=== PATIENT | female | born 1985 | race Hispanic/Latino ===

== ENCOUNTER 2023-02-14 23:20 | Inpatient (IN) | payer OTHER, SELFPAY ==
[2023-02-14 23:48] VITALS: BP 117/83; PULSE 77
[2023-02-15] VITALS (41 sets, daily range): BP systolic 95–131; BP diastolic 60–81; PULSE 59–89; RESP 14–19; TEMP 35.7–36.9; O2SAT 96–100; BMI 32.7
--- NOTE | 2023-02-15 00:20 | WPDANESEPP ---
Anes - Eval Pre Procedure Procedure: Operation Date: 02/15/23 00:10 Proposed Procedures p Section - Jesus Thompson MD Date/Time: 02/15/23 00:20 Pre Op Diagnosis: kaylynn acevedo Patient Data Age: 37 Gender: F Height: Weight: Last Vital Signs Pulse 73 02/15/23 00:01 BP 126/81 02/15/23 00:01 Patient hx anesthesia problems: none Family hx anesthesia problems: none Results Review: All pre-operative results and documents have been reviewed as part of the pre-operative evaluation. [facility] Past Medical History Medical History (Updated 02/15/23 @ 00:20 by Rafaela Garcia CRNA) IUP (intrauterine ), incidental Exam Day of Procedure 02/15/23 00:20
[2023-02-15 00:26] LABS: Basophils Percent Auto 0.3 % (0.2-1.2); Eosinophils Absolute Auto 0.1 K/mm3 (0-0.3); Eosinophils Percent Auto 1.1 % (0-4.4); Hematocrit 32.8 % (37.0-47.0); Hemoglobin 11.4 g/dL (12.0-15.0); Immature Granulocyte Absolute 0.04 K/mm3 (0.00-0.031); Immature Granulocyte Percent A 0.4 % (0-0.5); Lymphocytes Percent Auto 23.1 % (18.3-44.2); Mean Corpuscular HGB Conc 34.8 g/dl (32-36); Mean Corpuscular Hemoglobin 32.5 pg (26-34); Mean Corpuscular Volume 93.4 fl (80-100); Mean Platelet Volume 9.4 fl (7.4-10.4); Monocytes Absolute Auto 0.7 K/mm3 (0.1-0.6); Monocytes Percent Auto 8.1 % (2.6-8.5); Neutrophils Absolute Auto 6.1 K/mm3 (1.3-6.7); Platelet Count Result 192 k/mm3 (150-375); Red Blood Count 3.51 M/mm3 (4.2-5.4); Red Cell Distribution Width 13.9 % (11.5-14.5); White Blood Count 9.1 K/mm3 (4.5-10.0)
--- NOTE | 2023-02-15 00:34 | LDADM ---
This patient, Alysia Stovall, was admitted to Labor/Delivery/Recovery 107 on 02/14/23 at 23:20. Plans for labor, pain management and were discussed with patient. Patient/family oriented to hospital policies and general routines including ID bracelet, bed and alarms, visiting hours, pain management, procedures, bathroom and other care routines, personal items, smoking policy, room service/diet and guest tray routines, security routines, and visiting hours. Patient/Family are encouraged to report perceived risks to care and to ask questions if they do not understand what they are told or what they should do. See OBIX for further documentation.
[2023-02-15 00:54] LABS: Glucose Point of Care 123 mg/dl (65-105)
--- NOTE | 2023-02-15 01:06 | PM.IMHP ---
H&P: HPI History of Present Illness Date/Time: 02/15/23 01:06 Chief Complaint: Douglas acevedo Narrative: 37 y/o at 36 4/7 weeks gestation. She had a gush of fluid about 2100. SROM confirmed here on L&D. Feeling some contractions. Has gestational diabetes. She was taking glyburide, but says her glucose values have been ok recently without medication. GBS unknown. Review of Systems Review of Systems: All systems reviewed & are unremarkable except as noted in HPI and below PMFSH Past Medical History Medical History (Updated 02/15/23 @ 01:12 by Jesus Thompson MD) IUP (intrauterine ), incidental Surgical History Surgical History (Updated 02/15/23 @ 01:11 by Jesus Thompson MD) History of delivery Social History Social History Smoking status: Former smoker Tobacco type: cigarettes Smoking end date: 06/20/22 Substance use: never Lack of Transportation: No Lack of Food: Never True Current Housing: I Have Housing Concerned About Future Housing: No Difficulty Paying Gas/Electric Bills: No Difficulty Paying for Meds: No Currently Unemployed: No Education: Grade School Difficulty w/ Childcare or Family Care: No Spiritual care concerns: No Meds Home Medications and Allergies Home Medications Medication Instructions Recorded Confirmed Type No Home Medications 02/15/23 02/15/23 History Allergies Allergy/AdvReac Type Severity Reaction Status Date / Time No Known Allergies Allergy Verified 02/15/23 00:26 Vital Signs Vital Signs - 24 hr 02/14/23 23:48 02/15/23 00:01 02/15/23 00:43 Pulse Rate 77 73 78 Blood Pressure 117/83 126/81 119/80 Oxygen Delivery 02/15/23 01:01 02/15/23 00:32 Pulse Rate 72 Blood Pressure 111/69 Oxygen Delivery Room Air Exam Const: Orientation/consciousness: patient oriented x3 Other: Well-developed, well-nourished female in no acute distress. Neck: Thyroid: thyroid normal Lymphatic: no lymphadenopathy noted (in neck, axilla or inguinal nodes) Resp: Effort & Inspection: normal respiratory effort Auscultation: clear to auscultation bilaterally Cardio: Rate: regular rate Rhythm: regular rhythm Heart sounds: S1 normal heart sound present and S2 normal heart sound present GI: Other: ABD: Soft, nontender, nondistended, gravid. NST reactive. TOCO: occasional contractions. No guarding or rebound tenderness. No hepatosplenomegaly. : General: Yes no CVA tenderness Other: RomPlus positive Back/Spine/Pelvis: Back: no CVA tenderness Skin: General skin exam: normal color and no rashes or lesions noted Neuro: General: patient oriented x3 Extrem: Other: Extremities: nontender with no edema Psych: Mental Status: mental status grossly normal Affect: normal affect H&P: Results Labs Labs: Short CBC 02/15/23 Range/Units 00:19 WBC 9.1 (4.5-10.0) K/mm3 Hgb 11.4 L (12.0-15.0) g/dL Hct 32.8 L (37.0-47.0) % Plt Count 192 (150-375) k/mm3 Assessment and Plan Assessment and plan (1) SROM (spontaneous rupture of membranes): Status: Acute Assessment and Plan: A: IUP at 36 4/7 weeks with SROM, prior x 2, desiring repeat . Gestational diabetes. P: Offered repeat . She understands risks of surgery to include risks of anesthesia, risks of pain, infection, bleeding, blood products, thromboembolic phenomena and damage to adjacent structures such as bowel, bladder, ureters, blood vessels and nerves. She understands all these risks and elects to proceed with surgery. (2) labor: Code(s): O60.00 - labor without delivery, unspecified trimester Status: Acute (3) History of delivery: Code(s): Z98.891 - History of uterine scar from previous surgery Status: Acute (4) Gestational diabetes mellitus: Co
[2023-02-15] MEDS: ceFAZolin 2 GM/D5W 50 ML 2 GM/50 ML BAG IVPB (01:10)
--- NOTE | 2023-02-15 01:12 | WPDHPUPDATE1 ---
History and Physical Update Update Date/Time: 02/15/23 01:12 History and Physical has been reviewed, including an updated exam of the patient. There are NO changes in the patient's condition. Risks, benefits, and alternatives have been discussed and questions answered. Patient agrees to proceed with procedure.
[2023-02-15] MEDS: AZITHROMYCIN 500 MG/NS 250 ML 500 MG/250 ML BAG 250 MG IVPB (01:20)
[2023-02-15] MEDS: KETOROLAC 30 MG/ML VIAL (*BKC) IV PUSH (01:50)
--- NOTE | 2023-02-15 02:04 | PM.OBPRVD ---
OB - Delivery Note Procedure Delivery date: 02/15/23 Procedure: Procedures Operation Date: 02/15/23 00:10 Actual Procedure Side Surgeon p Section Jesus Thompson MD Events: Gestational Diabetes Delivery monitor: External FHT and External Uterine Route of delivery: Specimen: Yes (cord blood, placenta) Quantitative Blood Loss (ml): 280 Anesthesia type: Spinal Disposition: PACU Complications: None Narrative: The patient was taken to the operating room where she was prepared and draped in the usual sterile fashion in dorsal supine position with a leftward tilt. She received cefazolin and azithromycin preoperatively. Accucheck was 123. Spinal anesthesia was found to be adequate. A Pfannenstiel skin incision was made along the previous scar line and was carried through to the underlying layer of the fascia. The fascia was incised in the midline and the incision was extended laterally. The fascia was dissected free of the underlying rectus muscles. The rectus muscles were in the midline. The peritoneum was identified, tented up and entered sharply. The peritoneal incision was extended superiorly and inferiorly with good visualization of the bladder. The bladder blade was placed. The vesicouterine peritoneum was identified, tented up and entered sharply. The incision was extended laterally and the bladder flap was developed. The bladder blade was replaced. The uterus was then incised sharply in a transverse fashion along the lower uterine segment. The incision was extended laterally. The infant's head was delivered atraumatically to the sterile field, followed by the body. The nose and mouth were bulb suctioned. After a delay, the cord was clamped and cut. The was handed off the field. Cord blood was collected. The placenta was removed manually and was passed off the field. The uterus was exteriorized and cleared of all clots and debris. The uterine incision was reapproximated using 0 Monocryl in a running, locked fashion. A second, imbricating layer of the same suture was run. Excellent hemostasis resulted as did excellent reapproximation of the normal anatomy. The uterus was returned the abdomen. The pelvis was irrigated copiously with warmed normal saline. Rigorous hemostasis was assured. The fascial layer was reapproximated using 0 Vicryl in a running fashion. The skin was closed with a running, subcuticular stitch of 4 0 Vicryl. Dermaflex was applied externally. Sponge, lap, needle and instrument counts were correct. The patient was taken to the recovery room in stable condition. The infant went to the nursery in stable condition. I was present and scrubbed the entire procedure. [place] Baby Date of : 02/15/23 Time of : 01:36 Weeks of gestation at delivery: 36 Infant gender: Male Weight (pounds): 9 Weight (ounces): 8 presentation: vertex Placenta delivery description: Manual Removal and Normal Configuration Cord Vessel Description: 3 Vessels and Delayed Cord Clamping score one minute: 8 score five minutes: 9
--- NOTE | 2023-02-15 02:07 | PM.OBDSVD ---
DS: Admitting Diagnosis Discharge Date 02/19/23 Admitting Diagnosis IUP at 36 4/7 weeks SROM Gestational diabetes, noncompliant with treatment Prior , desires repeat Unknown GBS status DS: Discharge Diagnosis Discharge Diagnosis (1) Gestational diabetes mellitus: Code(s): O24.419 - Gestational diabetes mellitus in , unspecified control Status: Acute (2) History of delivery: Code(s): Z98.891 - History of uterine scar from previous surgery Status: Acute (3) labor: Code(s): O60.00 - labor without delivery, unspecified trimester Status: Acute (4) SROM (spontaneous rupture of membranes): Status: Acute (5) delivery delivered: Code(s): O82 - Encounter for delivery without indication Status: Acute OB - DS: Summary OB Procedures : None OB Procedures Intrapartum: OB Procedures: : None Peripartum Data Procedures: Procedures Operation Date: 02/15/23 00:10 Actual Procedure Side Surgeon p Section Jesus Thompson MD Time Spent with Patient Time attestation: Total time spent providing and/or coordinating discharge services: DS: Data Data Completed and Pending Labs on day of discharge: Labs from last 24 hours 02/15/23 02/15/23 00:39 00:19 WBC 9.1 RBC 3.51 L Hgb 11.4 L Hct 32.8 L MCV 93.4 MCH 32.5 MCHC 34.8 RDW 13.9 Plt Count 192 MPV 9.4 Immature Gran % (Auto) 0.4 Neut % (Auto) 67.0 Lymph % (Auto) 23.1 [place] % (Auto) 8.1 Eos % (Auto) 1.1 Baso % (Auto) 0.3 Lymph # (Auto) 2.10 [place] # (Auto) 0.7 H Eos # (Auto) 0.1 Baso # (Auto) 0.0 Abs Immat Gran (auto) 0.04 H Absolute Neuts (auto) 6.1 Absolute Nucleated RBC 0.0 Nucleated RBC % 0.0 POC Capillary Glucose 123 H RPR Pending Blood Type O Positive Antibody Screen Pending Discharge Plan Discharge Attending physician on discharge: Yfn Elaine Discharging Clinician: Yfn Elaine Patient Disposition: Home, Self-Care Activity: may shower, may drive after 2 weeks and pelvic rest Diet: regular Discharge Instructions: Call or return if temperature above 100.4? F, increased abdominal pain, increased vaginal bleeding or any new problems. Patient Instructions: How to Stop Smoking (DC), How to Stop Smoking (GEN), Cigarette Smoking and Your Health (GEN), Secondhand Smoke Exposure in Children (GEN) Patient Language: Greek Stand Alone Forms: General Discharge Information Follow-up/Referrals: Yfn Elaine MD [Physician] - 4 Weeks Discharge Medications: New ibuprofen 600 mg tablet 600 mg PO Q6H PRN (Reason: cramps) Qty: 30 0RF hydrocodone-acetaminophen 5-325 mg tablet 1 - 2 tablet PO Q6H PRN (Reason: pain) Qty: 30 0RF ferrous sulfate 325 mg (65 mg iron) tablet 325 mg PO DAILY Qty: 30 0RF Date of admission: 02/14/23 23:20 Primary Care Provider: PHYSICIAN[employer] Admitting Provider: Yfn Elaine Attending physician on admission: Yfn Elaine Condition: Stable
[2023-02-15] MEDS: OXYTOCIN 30 UNITS/NS 500 ML 30 UNITS/500 ML BAG 125 UNITS IV CONT (03:37)
--- NOTE | 2023-02-15 04:36 | PC.NURSE ---
Patient transferred to post room #279 per stretcher from labor and delivery. Support person present. Oriented to unit, room, information board, rooming in, admission packet and security measures. Patient verbalizes understanding.
[2023-02-15] MEDS: DEXTROSE 5%/0.45% SOD CHL 1,000 ML 125 ML IV CONT (07:00)
[2023-02-15] MEDS: MULTIVIT/MIN/PREN/FOL AC/IRON TABLET 1 TAB PO (08:37)
[2023-02-15] MEDS: DOCUSATE SODIUM 100 MG CAPSULE PO ×2 (08:37→16:30)
[2023-02-15] MEDS: IBUPROFEN 600 MG TABLET PO ×3 (08:37→23:57)
--- NOTE | 2023-02-15 10:35 | PC.NURSE ---
Addendum entered by Holly Botello RN 02/15/23 10:44: There was education regarding late behaviors along with other education listed below on how to encourage wakefulness and eating. Original Note: [id number] Introductions were made, then consulted with patient to assess needs related to . Resources provided for inpatient and outpatient services with the [place] guide and name written on the white board. Mother works well with her with encouragement, education, and has breastfed other children. Encouraged understanding of the benefits of skin to skin (demonstrating unwrapping infant and placing upright on her chest), stimulating with massage touch, changing positions to encourage wakefulness, how to watch for early feeding cues, responsive feeding, feeding on demand (aiming for 8-12 times in 24 hours, about every 2-3 hours), milk production, building/maintaining a milk supply, duration of feeding, signs of adequate intake/output and how to record on the feeding sheet. Infant is quiet alert and awake stooling in the diaper for the second time and burping after [id number], changing positioning, and stimulating massage touch. is not demonstrating feedin cues at this time. Nipple care reviewed with optimal latch and good positioning. Mother states when infant has latched there was no pain. Reminding mother of comfort measures of healing with a warm and wet washcloth to rinse breast, then leave open to air-dry as needed. Mother voiced understanding of skin to skin, stimulating with massage touch, responsive feedings, hand expressed colostrum, talking to to encourage if it has been 2 -2.5 hours since the start of the last , to call if does not latch, or if there is discomfort with . Parents voiced understanding of information, demonstrated learning and will call if there is a request for assistance. Primary RN is present for the entire consult as she interpreted.
[2023-02-15] MEDS: HYDROcodone/acetaminophen (*CRX) 5-325 MG TABLET 1 TAB PO (13:06)
[2023-02-15 15:14] LABS: Rapid Plasma Reagin Non-Reactive (NonReactive)
[2023-02-16 05:22] LABS: Basophils Percent Auto 0.3 % (0.2-1.2); Eosinophils Absolute Auto 0.2 K/mm3 (0-0.3); Eosinophils Percent Auto 1.9 % (0-4.4); Hematocrit 29.5 % (37.0-47.0); Hemoglobin 9.8 g/dL (12.0-15.0); Immature Granulocyte Absolute 0.04 K/mm3 (0.00-0.031); Immature Granulocyte Percent A 0.4 % (0-0.5); Lymphocytes Absolute Auto 1.63 K/mm3 (0.9-3.2); Lymphocytes Percent Auto 17.3 % (18.3-44.2); Mean Corpuscular HGB Conc 33.2 g/dl (32-36); Mean Corpuscular Hemoglobin 32.1 pg (26-34); Mean Corpuscular Volume 96.7 fl (80-100); Mean Platelet Volume 9.6 fl (7.4-10.4); Monocytes Absolute Auto 0.8 K/mm3 (0.1-0.6); Monocytes Percent Auto 8.1 % (2.6-8.5); Neutrophils Absolute Auto 6.8 K/mm3 (1.3-6.7); Platelet Count Result 146 k/mm3 (150-375); Red Blood Count 3.05 M/mm3 (4.2-5.4); Red Cell Distribution Width 14.5 % (11.5-14.5); White Blood Count 9.4 K/mm3 (4.5-10.0)
[2023-02-16 07:25] VITALS: BP 99/67; PULSE 73; RESP 16; TEMP 36.4; O2SAT 98
--- NOTE | 2023-02-16 07:52 | WPDANLDPN2 ---
Anes-Prog Note L&D Date/Time: 02/16/23 07:52 Neuro status: Neuro function grossly intact. Vital Signs: Last Vital Signs Temp 36.5 C 02/15/23 23:50 Pulse 89 02/15/23 23:50 Resp 18 02/15/23 23:50 BP 96/61 L 02/15/23 23:50 Pulse Ox 99 02/15/23 15:40 O2 Del Method Room Air 02/15/23 15:40 Pain score (VAS): 0 I/O: Intake & Output 02/15/23 02/15/23 02/16/23 15:59 23:59 07:59 Intake Total 4500 2240 Output Total 4900 3950 Balance -400 -1710 Patient feedback: Patient satisfied with anesthetic care.
--- NOTE | 2023-02-16 07:52 | WPDANLDNPN2 ---
Anes-Prog Note L&D-Neuraxial Date/Time: 02/16/23 07:52 Patient feedback: Patient satisfied with post-operative pain management.
--- NOTE | 2023-02-16 10:27 | PM.OBPNVD ---
OB - PN: Subj Subjective Date/time seen: 02/16/23 10:27 Patient comments: no complaints and pain well controlled baby status: doing well and nursing well OB - PN: Obj Data Labs 02/16/23 04:48 Labs: Laboratory Results - last 24 hr 02/15/23 02/16/23 00:19 04:48 WBC 9.4 RBC 3.05 L Hgb 9.8 L Hct 29.5 L MCV 96.7 MCH 32.1 MCHC 33.2 RDW 14.5 Plt Count 146 L MPV 9.6 Immature Gran % (Auto) 0.4 Neut % (Auto) 72.0 Lymph % (Auto) 17.3 L [place] % (Auto) 8.1 Eos % (Auto) 1.9 Baso % (Auto) 0.3 Lymph # (Auto) 1.63 [place] # (Auto) 0.8 H Eos # (Auto) 0.2 Baso # (Auto) 0.0 Abs Immat Gran (auto) 0.04 H Absolute Neuts (auto) 6.8 H Absolute Nucleated RBC 0.0 Nucleated RBC % 0.0 RPR Non-reactive OB - PN A/P Plan day: 1 Plan: routine care Time Spent With Patient Time: Total time spent is greater than 50% in coordination of care (as documented) at patient's floor/unit and/or counseling patient: Time with patient: less than 15 minutes Exam Const: General: cooperative, healthy appearing and comfortable Nutritional Appearance: average body habitus Orientation/consciousness: oriented to person, oriented to place and oriented to time HENMT: Head: normal to inspection Resp: Effort & Inspection: normal respiratory effort Cardio: Rate: regular rate Rhythm: regular rhythm Heart sounds: S1 normal heart sound present and S2 normal heart sound present GI: Inspection: normal to inspection and incision (Wound clean dry and intact)
[2023-02-16] MEDS: IBUPROFEN 600 MG TABLET PO (12:10)
[2023-02-16] MEDS: HYDROcodone/acetaminophen (*CRX) 5-325 MG TABLET 1 TAB PO (12:10)
[2023-02-16] MEDS: DOCUSATE SODIUM 100 MG CAPSULE PO (17:44)
[2023-02-16] MEDS: POLYSACCHARIDE IRON COMPLEX 150 MG CAPSULE PO (17:44)
[2023-02-16 17:45] VITALS: BP 112/64; PULSE 86; RESP 16; TEMP 36.8
[2023-02-16 20:48] VITALS: BP 113/72; PULSE 72; RESP 16; TEMP 36.9; O2SAT 98
[2023-02-17] MEDS: IBUPROFEN 600 MG TABLET PO ×3 (00:32→17:11)
[2023-02-17] MEDS: HYDROcodone/acetaminophen (*CRX) 5-325 MG TABLET 1 TAB PO ×3 (00:33→17:11)
[2023-02-17 08:30] VITALS: BP 107/76; PULSE 79; RESP 16; TEMP 36.9; O2SAT 99
[2023-02-17] MEDS: MULTIVIT/MIN/PREN/FOL AC/IRON TABLET 1 TAB PO (09:07)
[2023-02-17] MEDS: DOCUSATE SODIUM 100 MG CAPSULE PO ×2 (09:07→17:10)
[2023-02-17] MEDS: POLYSACCHARIDE IRON COMPLEX 150 MG CAPSULE PO ×2 (09:07→17:10)
--- NOTE | 2023-02-17 10:15 | PM.OBPNVD ---
OB - PN: Subj Subjective Date/time seen: 02/17/23 10:15 Narrative: Pain OK. Tolerating diet. Baby under bili lights. She would like to go home tomorrow. OB - PN: Obj Data Labs 02/16/23 04:48 OB - PN A/P Plan Comments: A: POD#2, doing well. P: Home tomorrow to f/u 4 weeks. Exam Narrative: AVSS ABD soft, nontender, fundus firm. Incision c/d/i. EXT nontender
[2023-02-17 23:24] VITALS: BP 105/76; PULSE 74; RESP 16; TEMP 36.4; O2SAT 99
[2023-02-18 08:00] VITALS: BP 105/72; PULSE 72; RESP 16; TEMP 36.9; O2SAT 99
[2023-02-18] MEDS: DOCUSATE SODIUM 100 MG CAPSULE PO ×2 (08:00→16:12)
[2023-02-18] MEDS: POLYSACCHARIDE IRON COMPLEX 150 MG CAPSULE PO ×2 (08:00→16:12)
[2023-02-18] MEDS: IBUPROFEN 600 MG TABLET PO ×2 (08:00→20:05)
[2023-02-18] MEDS: MULTIVIT/MIN/PREN/FOL AC/IRON TABLET 1 TAB PO (08:00)
[2023-02-18] MEDS: HYDROcodone/acetaminophen (*CRX) 5-325 MG TABLET 1 TAB PO ×2 (08:01→20:06)
--- NOTE | 2023-02-18 16:59 | PC.NURSE ---
Patient viewed the discharge video Mother & Baby Care, The First Two Weeks in [place]. Patient was given the opportunity and encouraged to ask questions. Patient verbalized understanding of information shared and has been given the mother/baby guide for home reference.
[2023-02-18 19:30] VITALS: BP 118/84; PULSE 74; RESP 16; TEMP 37.1; O2SAT 100
--- NOTE | 2023-02-19 07:23 | PM.OBPNVD ---
OB - PN: Subj Subjective Date/time seen: 02/19/23 07:23 Patient comments: no complaints and pain well controlled baby status: doing well OB - PN: Obj Data Labs 02/16/23 04:48 OB - PN A/P Plan day: 4 Plan: routine care, discharge home and follow up 6 weeks (4) Time Spent With Patient Time: Total time spent is greater than 50% in coordination of care (as documented) at patient's floor/unit and/or counseling patient: Time with patient: less than 15 minutes Exam Const: General: cooperative, healthy appearing and comfortable Nutritional Appearance: average body habitus Orientation/consciousness: oriented to person, oriented to place and oriented to time Resp: Effort & Inspection: normal respiratory effort Cardio: Rate: regular rate Rhythm: regular rhythm Heart sounds: S1 normal heart sound present and S2 normal heart sound present GI: Inspection: incision (cdi) Auscultation: normal bowel sounds
[2023-02-19 07:50] VITALS: BP 119/89; PULSE 71; RESP 18; TEMP 37.6; O2SAT 98
[2023-02-19] MEDS: POLYSACCHARIDE IRON COMPLEX 150 MG CAPSULE PO (08:27)
[2023-02-19] MEDS: DOCUSATE SODIUM 100 MG CAPSULE PO (08:28)
[2023-02-19] MEDS: MULTIVIT/MIN/PREN/FOL AC/IRON TABLET 1 TAB PO (08:28)
--- NOTE | 2023-02-19 08:44 | PM.OBPNVD ---
OB - PN: Subj Subjective Date/time seen: 02/18/23 11:00 (Late entry) Narrative: Pain OK. Tolerating diet. Baby on bili lights - peds would like to keep baby inpatient, so Alysia plans to remain an inpatient. OB - PN: Obj Data Labs 02/16/23 04:48 OB - PN A/P Plan day: 3 Comments: A: POD#3, doing well. P: Routine care. Exam Narrative: AVSS I/O OK ABD soft, nontender, fundus firm. Incision c/d/i. EXT nontender
--- NOTE | 2023-02-19 16:01 | PC.NURSE ---
This morning patient received a Zomee pump through [facility] and the Primary RN reported that mother is well independently. There is a healing injury on her left nipple. Mother is aware of when it happened and voiced detaching infant and latching without pain. Resource provided with a [place] guide.
[2023-02-21 08:40] VITALS: BP 112/65; PULSE 75; RESP 18; TEMP 36.8; O2SAT 100
== END 2023-02-19 11:29 | disposition home or self-care (01) | DRG 540 ==
LOC: ANHOBOP 23:35 → ANHLDR 23:38 → ANHOB2 02-15 04:38
PROVIDERS: Admitting Provider Obstetrics & Gynecology; Visit Provider Obstetrics & Gynecology
PROC: 10D00Z1 Extraction of Products of Conception, Low, Open Approach (ICD-10-PCS; CPT 59514; principal; 2023-02-15 00:10)
DX: O34.219 Maternal care for unspecified type scar from previous cesarean delivery (principal); O60.14X0 Preterm labor third trimester with preterm delivery third trimester, not applicable or unspecified; O24.425 Gestational diabetes mellitus in childbirth, controlled by oral hypoglycemic drugs; Z3A.36 36 weeks gestation of pregnancy; Z37.0 Single live birth; Z87.891 Personal history of nicotine dependence; Z91.148 Patient's other noncompliance with medication regimen for other reason
CPT/HCPCS: 36415; 82948; 84112; 85025; 86592; 86850; 86900; 86901; 88307; A9270; J0456; J0690; J1885; J2274; J2371; J2405; J2590

== ENCOUNTER 2023-05-04 16:44 | Emergency (ER) | payer OTHER, SELFPAY ==
--- NOTE | 2023-05-04 16:49 | ED.GENADULT ---
HPI - General Adult General Chief complaint: Unspecified Stated complaint: blood sugar high Time Seen by Provider: 05/04/23 17:10 Mode of arrival: ambulatory Limitations: no limitations History of Present Illness HPI narrative: 37-year-old female presents concern for high blood sugar. She reports she decided to randomly check her blood sugar and it was 215. She denies any symptoms. She reports she is currently an infant, she had history of gestational diabetes. She reports she drinks lot of water but that is because she is , she denies polydipsia or polyuria complaint: hyperglycemia Related Data Allergies Allergy/AdvReac Type Severity Reaction Status Date / Time No Known Allergies Allergy Verified 05/04/23 17:07 Review of Systems Review of Systems: CONSTITUTIONAL: Denies malaise, chills, sweats, or fever. EYES: Denies visual changes CARDIOVASCULAR: Denies chest pain, palpitations, or edema. RESPIRATORY: Denies cough or dyspnea. GASTROINTESTINAL: Denies abdominal pain, nausea, vomiting, diarrhea GENITOURINARY: Denies dysuria or hematuria. NEUROLOGIC: Denies numbness, weakness, or headache. PSYCHIATRIC: Denies anxiety or depression. All systems reviewed & are unremarkable except as noted in HPI and below PMFSH Past Medical History Medical History (Updated 05/04/23 @ 17:20 by Beena Morel NP) IUP (intrauterine ), incidental Surgical History Surgical History (Updated 02/15/23 @ 01:11 by Jesus Thompson MD) History of delivery Social History Social History Smoking status: Former smoker Tobacco type: cigarettes Smoking end date: 06/20/22 Substance use: never Lack of Transportation: No Lack of Food: Never True Current Housing: I Have Housing Concerned About Future Housing: No Difficulty Paying Gas/Electric Bills: No Difficulty Paying for Meds: No Currently Unemployed: No Education: Grade School Difficulty w/ Childcare or Family Care: No Spiritual care concerns: No Comments At time of signature, agree with nursing past medical, surgical, social and family history. There is no relevant family history pertinent to the presenting complaint Exam Narrative: GENERAL: Well-appearing, well-nourished, and in no acute distress. HEAD: Normocephalic, atraumatic. EYES: PERRLA, sclera clear, and EOMI. No nystagmus. ENT: Nares clear. Mucous membranes moist. NECK: Supple. CHEST: No respiratory distress. Speaks in full sentences. HEART: Regular rate and rhythm. No murmur heard. SKIN: Warm, dry, no visible rash. NEURO: Alert and oriented x3. No focal deficits. Cranial nerves II through XII grossly intact PSYCH: Normal mood and affect Course Course Emergency Course: Patient spoke to her primary care doctor who advised her to be seen in urgent care in follow-up with her on Sunday. Discussed with patient limited diagnostic ability at the Urgent Care, offered transfer to ER for further testing. Patient will prefer to be started on medication here and will follow up with her doctor on Sunday. Patient was advised to continue to check her blood sugar, was advised on what foods to avoid and metformin was prescribed b.i.d. She was advised to go to the emergency room if her blood sugar was above 400 Patient is aware of diagnosis, understands and agrees to treatment plan. Anticipatory guidance given. Patient agrees to follow-up as directed and is aware of reasons to seek care at the emergency department. Portions of this record may have been created with voice recognition software Level of Care: Express Care Visit Vital Signs Vital signs: Reviewed. Medical Decision Making MDM Narrative Medical decision making narrative: Exam findings and imaging show no acute concerns or changes; patient is non-toxic appearing and is in no distress. Patient is appropriate for outpatient treatmen
[2023-05-04 16:53] VITALS: BP 125/75; PULSE 81; RESP 16; TEMP 36.6; O2SAT 100
[2023-05-04 17:00] LABS: Glucose Point of Care 290 mg/dl (65-105)
== END 2023-05-04 17:35 | disposition home or self-care (01) ==
PROVIDERS: Emergency Provider Nurse Practitioner; PCP Registered Nurse
DX: R03.0 Elevated blood-pressure reading, without diagnosis of hypertension (principal); Z87.891 Personal history of nicotine dependence
CPT/HCPCS: 81003; 81025; 82948; 99213; G0463